=== PATIENT | female | born 1990 | race Hispanic/Latino ===

== ENCOUNTER 2017-07-02 19:48 | Emergency (ER) | payer OTHER ==
[2017-07-02 20:03] VITALS: BP 110/55; PULSE 55; RESP 18; TEMP 98.5; O2SAT 100
--- NOTE | 2017-07-02 20:31 | ED PDOC ---
HPI: Wound Care - HPI Time Seen by Provider: 07/02/17 20:12 Chief Complaint (Nursing): Abnormal Skin Integrity Chief Complaint (Provider): finger laceration History Per: Patient History Of Present Illness: 27 y/o female presents with laceration to right hand 2nd digit sustained prior to arrival. Patient states she was using a spiral ariela and the blade cut her finger. Denies numbness/weakness right upper extremity, limitation of movement. Tetanus up to date. Past Medical History Reviewed: Historical Data, Nursing Documentation, Vital Signs Vital Signs: Last Vital Signs Temp 98.5 F 07/02/17 20:02 Pulse 55 L 07/02/17 20:02 Resp 18 07/02/17 20:02 BP 110/55 L 07/02/17 20:02 Pulse Ox 100 07/02/17 20:02 - Medical History PMH: No Chronic Diseases - Surgical History Surgical History: No Surg Hx - Family History Family History: States: No Known Family Hx - Allergies Allergies/Adverse Reactions: Allergies Allergy/AdvReac Type Severity Reaction Status Date / Time wheat Allergy VOMITING Verified 07/02/17 20:01 Review of Systems ROS Statement: Except As Marked, All Systems Reviewed And Found Negative Musculoskeletal: Positive for: Hand Pain (right hand 2nd digit) Physical Exam - Reviewed Nursing Documentation Reviewed: Yes Vital Signs Reviewed: Yes - Physical Exam Appears: Positive for: Well, Non-toxic, No Acute Distress Pulses-Radial (L): 2+ Pulses-Radial (R): 2+ Extremity: Positive for: Normal ROM, Other (1cm linear laceration right hand 2nd digit medial aspect of PIP. No active bleeding. FROM. Distal NV, motor intact) - ECG O2 Sat by Pulse Oximetry: 100 Procedure: Wound Repair - Time Performed Time Performed: 20:25 - Time Out Time Out: Side verified, Site verified, Patient ID confirmed, Sterile procedures obs. - Consent Obtained Consent obtained: Verbal - Performed by Performed by: Mid-level Provider - Location Location:: Right Finger:: Index Shape:: Linear Dimensions Length cm: 1cm Dimensions width cm: 0.2cm Depth:: Epidermis - Debris Debris:: None - Irrigated Irrigated with ml of normal saline: 100mL - Wound repair method Jared:: Tissue glue, Steri-strips (finger splint applied) - Muscle repiar layer closed with Muscle repair layer closed with:: Tetanus up to date - Patient tolerated procedure Patient Tolerated Procedure:: Well Medical Decision Making Medical Decision Making: Patient educated on wound care, advised follow up PMD 2-3 days. Return precautions given. Disposition - Clinical Impression Clinical Impression: Finger laceration - Patient ED Disposition Is Patient to be Admitted: No Counseled Patient/Family Regarding: Diagnosis, Need For Followup - Disposition Disposition: Routine/Home Disposition Time: 20:32 Condition: STABLE Instructions: Laceration (ED), Skin Adhesive Care (ED)
== END 2017-07-02 21:08 | disposition home or self-care (01) ==
LOC: H.ER 19:48
DX: S61.210A Laceration without foreign body of right index finger without damage to nail, initial encounter (principal); W26.0XXA Contact with knife, initial encounter; Y92.89 Other specified places as the place of occurrence of the external cause